=== PATIENT | female | born 1945 | race Caucasian/White ===

== ENCOUNTER 2016-10-15 09:17 | Day surgery (SDC) | payer MEDICARE, BC ==
--- NOTE | ~2016-10-15 | EGD ---
EGD REPORT [facility] [address] [id number] NAME: JIN MEJÍA : 45 STATUS : REG [facility]#: [id number] AGE: 71 ADM/REG DATE : 10/15/16 MR#: [id number] REPORT SERV DATE: 10/15/16 DICTATED BY: DATE: REPORT STATUS : Draft TRANSCRIBED BY: [employer] DATE: 10/15/16 [facility] Patient Name: Jin Mejía Date of : 1945 Attending MD: GEORGIA DUQUE MD Procedure Date No Time: 10/15/2016 Procedure: Colonoscopy Indications: High risk colon CA surveillance: Personal history multiple (3 or more) adenomas Referring MD: BENJAMIN CORTEZ Medicines: Monitored Anesthesia Care Complications: No immediate complications. Procedure: Pre-Anesthesia Assessment: - ASA Grade Assessment: III - A patient with severe systemic disease. After I obtained informed consent, the scope was passed under direct vision. Throughout the procedure, the patient's blood pressure, pulse, and oxygen saturations were monitored continuously. The PCF [id number] was introduced through the anus and advanced to the cecum, identified by appendiceal orifice and ileocecal valve. The colonoscopy was performed without difficulty. The patient tolerated the procedure well. The quality of the bowel preparation was excellent. Findings: The perianal and digital rectal examinations were normal. Multiple small-mouthed diverticula were found in the sigmoid colon. No other significant abnormalities were identified in a careful examination of the remainder of the colon. There is no endoscopic evidence of inflammation, mass, polyps, stenosis, ulcerations or angioectasia in the entire colon. Internal hemorrhoids were found during retroflexion and were Grade I (internal hemorrhoids that do not prolapse). No additional abnormalities were found on retroflexion. Impression: - Diverticulosis in the sigmoid colon. - Internal hemorrhoids. Recommendation: - Patient has a contact number available for emergencies. The signs and symptoms of potential delayed complications were discussed with the patient. Return to normal activities tomorrow. Written discharge instructions were provided to the patient. - High fiber diet. EGD REPORT [address] [address] NAME: JIN MEJÍA HAYDEN : [birth year] STATUS : REG [facility] PAT#: [id number] AGE: 71 ADM/REG DATE : 10/15/16 MR#: [id number] REPORT SERV DATE: 10/15/16 DICTATED BY: DATE: REPORT STATUS : Draft TRANSCRIBED BY: [employer] DATE: 10/15/16 - Discharge patient to home. - Continue present medications. - Repeat colonoscopy in 5 years for surveillance. - Suggest using a bulk agent such as Citrocel daily. Plenty of fluids. Procedure Code(s): --- Professional --- G0105, Colorectal cancer screening; colonoscopy on individual at high risk Diagnosis Code(s): --- Professional --- K64.0, First degree hemorrhoids K57.30, Diverticulosis of large intestine without perforation or abscess without bleeding Z86.010, Personal history of colonic polyps CPT copyright 2013 [employer]. All rights reserved. The codes documented in this report are preliminary and upon escalator service mechanic review may be revised to meet current compliance requirements. GEORGIA DUQUE MD 10/15/2016 12:56 PM This report has been signed electronically. Number of Addenda: 0 Note Initiated On: 10/15/2016 10:59 AM Scope Withdrawal Time 0 hours 8 minutes 49 seconds [address] [id number]
[~2016-10-15 09:17] MED LIST: ADVIL PM; CELEXA20 PO; CELEXA40 MG PO; COQ-1010 MG PO; FLEX PO; FOLIC PO; L40 PO; LIPITOR20 PO; LOFIB160 PO; MELATONIN1 M1 PO; METHOTREXATE25 MG/ML; MOBIC15 MG PO; NAMENDA10 MG PO; NORCO1 TA2 PO; OCUVITE PO; PRILOSEC40 MG PO; PRIN5 PO; VITE PO; ZINC PO
== END 2016-10-15 23:59 | disposition home or self-care (01) ==
LOC: DMU 09:17
PROVIDERS: Internal Medicine Gastroenterology
PROC: 0DJD8ZZ Inspection of Lower Intestinal Tract, Via Natural or Artificial Opening Endoscopic (ICD-10-PCS; principal; 2016-10-15 12:30)
DX: K64.0 First degree hemorrhoids (principal); K57.30 Diverticulosis of large intestine without perforation or abscess without bleeding; K21.9 Gastro-esophageal reflux disease without esophagitis; M06.9 Rheumatoid arthritis, unspecified; I11.0 Hypertensive heart disease with heart failure; I50.9 Heart failure, unspecified; E78.00 Pure hypercholesterolemia, unspecified; M19.90 Unspecified osteoarthritis, unspecified site; E89.0 Postprocedural hypothyroidism; Z86.010 Personal history of colon polyps; Z88.5 Allergy status to narcotic agent; Z88.8 Allergy status to other drugs, medicaments and biological substances; Z96.651 Presence of right artificial knee joint; Z79.891 Long term (current) use of opiate analgesic; Z79.899 Other long term (current) drug therapy; Z98.41 Cataract extraction status, right eye; Z98.42 Cataract extraction status, left eye; Z98.890 Other specified postprocedural states